=== PATIENT | male | born 1940 | race Caucasian/White ===

== ENCOUNTER → 2024-03-18 09:32 | Outpatient (REF) | payer OTHER, SELFPAY | LOC: RCS 09:32 | PROVIDERS: ATTENDING PHYSICIAN Family Medicine | DX: R01.1 Cardiac murmur, unspecified (principal); I25.10 Atherosclerotic heart disease of native coronary artery without angina pectoris | CPT/HCPCS: 93005 ==

== ENCOUNTER → 2024-04-17 14:43 | Outpatient (REF) | payer OTHER, SELFPAY | LOC: HWRAD 14:43 | PROVIDERS: ATTENDING PHYSICIAN Family Medicine | DX: Z87.891 Personal history of nicotine dependence (principal); R93.89 Abnormal findings on diagnostic imaging of other specified body structures | CPT/HCPCS: 71260; Q9967 ==

== ENCOUNTER → 2024-04-19 14:46 | Outpatient (REF) | payer OTHER, SELFPAY | LOC: HWRCS 14:46 | PROVIDERS: ATTENDING PHYSICIAN Family Medicine | DX: R01.1 Cardiac murmur, unspecified (principal); I25.10 Atherosclerotic heart disease of native coronary artery without angina pectoris | CPT/HCPCS: 93306 ==

== ENCOUNTER → 2024-10-31 11:12 | Outpatient (REF) | payer OTHER, SELFPAY | LOC: RAD 11:12 | PROVIDERS: ATTENDING PHYSICIAN Nurse Practitioner Primary Care | DX: M50.90 Cervical disc disorder, unspecified, unspecified cervical region (principal); M47.812 Spondylosis without myelopathy or radiculopathy, cervical region | CPT/HCPCS: 72052 ==